=== PATIENT | female | born 1945 | race Caucasian/White ===

== ENCOUNTER 2016-04-05 19:36 | Emergency (ER) | payer MEDICARE, MEDICAID ==
--- NOTE | 2016-04-05 19:58 | UC ---
General HPI - HPI Summary HPI Summary: patient is a [facility] of a [facility], she slipped off the toilet landed on right knee. per home policy is here for check. she denies any new onset pain. - History of Current Complaint Stated Complaint: FALL/NO VISABLE INJURIES Time Seen by Provider: 04/05/16 19:42 Hx Obtained From: Patient Onset/Duration: Sudden Onset, Resolved Timing: Constant Onset Severity: Mild Current Severity: Mild - Allergy/Home Medications Allergies/Adverse Reactions: Allergies Allergy/AdvReac Type Severity Reaction Status Date / Time Penicillins Allergy Unknown Unknown Verified 03/16/15 19:25 Reaction Details Acetaminophen [From Tylenol] Allergy See Comment Verified 06/27/15 14:20 Timolol Allergy Rash Verified 03/16/15 19:25 PMH/Surg Hx/FS Hx/Imm Hx Previously Healthy: Yes Cardiovascular History Of: Reports: Hypertension Neurological History Of: Reports: Seizures Psychological History Of: Denies: Anxiety, Depression, Bipolar Disorder, Schizophrenia, Post Traumatic Stress Disorder Cancer History Of: Denies: Lung Cancer, Colorectal Cancer, Breast Cancer, Prostate Cancer, Cervical Cancer - Surgical History Surgical History: Yes Surgery Procedure, Year, and Place: hysterectomy and L oophorectomy - Family History Known Family History: Positive: None Negative: Cardiac Disease, Hypertension - Social History Alcohol Use: None Substance Use Type: None Smoking Status (MU): Never Smoked Tobacco - Immunization History Most Recent Influenza Vaccination: 12/2014 Most Recent Tetanus Shot: 09/02/10 Most Recent Pneumonia Vaccination: 12/29/11 Review of Systems Constitutional: Negative Skin: Negative Eyes: Negative ENT: Negative Respiratory: Negative Cardiovascular: Negative Gastrointestinal: Negative Genitourinary: Negative Motor: Negative Neurovascular: Negative Musculoskeletal: Arthralgia Neurological: Negative Psychological: Negative All Other Systems Reviewed And Are Negative: Yes Physical Exam Triage Information Reviewed: Yes Appearance: Well-Appearing, Well-Nourished, Pain Distress Vital Signs Reviewed: Yes Eye Exam: Normal Eyes: Positive: Conjunctiva Clear ENT Exam: Normal ENT: Positive: Normal ENT inspection, Pharynx normal, TMs normal Dental Exam: Normal Neck exam: Normal Neck: Positive: Supple, Nontender, No Lymphadenopathy Respiratory Exam: Normal Respiratory: Positive: Chest non-tender, Lungs clear, Normal breath sounds Cardiovascular Exam: Normal Cardiovascular: Positive: RRR, No Murmur, Pulses Normal Abdominal Exam: Normal Abdomen Description: Positive: Nontender, No Organomegaly, Soft Bowel Sounds: Positive: Present Musculoskeletal Exam: Normal Musculoskeletal: Positive: Strength Intact, ROM Intact, No Edema Neurological Exam: Normal Neurological: Positive: Alert, Muscle Tone Normal Psychological Exam: Normal Skin Exam: Normal Course/Dx - Course Course Of Treatment: hx obtained, exam performed, arthritic changes noted in bilateral knees, ROm in hips and knees and ankles good in all ROM. no deformity or crepitus, no bruising. recommend follow up with any new onset pain. - Differential Dx - Multi-Symptom Provider Diagnoses: fall. OA in right knee Discharge - Discharge Plan Condition: Stable Disposition: HOME Patient Education Materials: Arthritis (ED) Referrals: Reina Blanc PA [Primary Care Provider] - Additional Instructions: At this time patient does not seem to have any new injury or lasting pain from her fall. Continue with her current pain regimen may use ice as tolerated for any pain or swelling. follow up with her PCP if any symptoms arise.
[2016-04-05 20:04] VITALS: BP 99/83
== END 2016-04-05 20:12 | disposition home or self-care (01) ==
LOC: UCCORT 19:36
DX: M17.11 Unilateral primary osteoarthritis, right knee (principal); Z04.8 Encounter for examination and observation for other specified reasons; Z88.6 Allergy status to analgesic agent; Z88.0 Allergy status to penicillin; Z88.8 Allergy status to other drugs, medicaments and biological substances
CPT/HCPCS: 99211; G0463

== ENCOUNTER 2016-07-11 09:44 | Emergency (ER) | payer MEDICARE, MEDICAID ==
[2016-07-11 10:00] VITALS: BP 96/56
--- NOTE | 2016-07-11 11:02 | UC ---
Skin Complaint HPI - HPI Summary HPI Summary: Patient states she has a "sore" on the left anterior area of scalp. Unable to recall how long it has been there, denies any injury. A nickel sized red open abrasion visible. [ End ] - History of Current Complaint Chief Complaint: UCSkin Time Seen by Provider: 07/11/16 10:54 Stated Complaint: SKIN CONCERN Hx Obtained From: Patient Hx Last Menstrual Period: n/a ?: No Onset/Duration: Gradual Onset Skin Exposure Onset/Duration: Weeks Ago - ? Onset Severity: Mild Current Severity: Mild Location: Face Aggravating: Nothing Alleviating: Nothing Associated Signs & Symptoms: Positive: Negative - Allergy/Home Medications Allergies/Adverse Reactions: Allergies Allergy/AdvReac Type Severity Reaction Status Date / Time Penicillins Allergy Unknown Unknown Verified 07/11/16 10:00 Reaction Details Acetaminophen [From Tylenol] Allergy See Comment Verified 07/11/16 10:00 Timolol Allergy Rash Verified 07/11/16 10:00 Home Medications: Home Medications Bimatoprost 0.01% OPHTH (NF) [Lumigan 0.01% OPHTH (NF)] 1 drop BOTH EYES QPM [History Confirmed 07/11/16] Linaclotide (NF) [Linzess (NF)] 290 mcg PO EVERY OTHER DAY 07/11/16 [History Confirmed 07/11/16] Phenytoin CAP(*) [Dilantin CAP(*)] 100 mg PO TID 07/11/16 [History Confirmed ] Probiotic Product [Acidophilus] 1 cap PO DAILY 07/11/16 [History Confirmed 07/11] Topiramate [Topamax 100 mg tab] 150 mg PO BID 07/11/16 [History Confirmed ] Review of Systems Constitutional: Negative Skin: Negative, Other - lesion Eyes: Negative ENT: Negative Respiratory: Negative Cardiovascular: Negative Gastrointestinal: Negative Genitourinary: Negative Motor: Negative Neurovascular: Negative Musculoskeletal: Negative Neurological: Negative Psychological: Negative All Other Systems Reviewed And Are Negative: Yes PMH/Surg Hx/FS Hx/Imm Hx Previously Healthy: Yes Cardiovascular History Of: Reports: Hypertension Neurological History Of: Reports: Seizures Psychological History Of: Denies: Anxiety, Depression, Bipolar Disorder, Schizophrenia, Post Traumatic Stress Disorder Cancer History Of: Denies: Lung Cancer, Colorectal Cancer, Breast Cancer, Prostate Cancer, Cervical Cancer - Surgical History Surgical History: Yes Surgery Procedure, Year, and Place: hysterectomy and L oophorectomy - Family History Known Family History: Positive: None Negative: Cardiac Disease, Hypertension - Social History Occupation: Employed Full-time Lives: With Family Alcohol Use: None Substance Use Type: None Smoking Status (MU): Never Smoked Tobacco - Immunization History Most Recent Influenza Vaccination: 12/2014 Most Recent Tetanus Shot: 09/02/10 Most Recent Pneumonia Vaccination: 12/29/11 Physical Exam Triage Information Reviewed: Yes Appearance: Well-Appearing, No Pain Distress, Well-Nourished Vital Signs: Initial Vital Signs Temp 97.8 F 07/11/16 09:47 Pulse 68 07/11/16 09:47 Resp 14 07/11/16 09:47 BP 96/56 07/11/16 09:47 Pulse Ox 98 07/11/16 09:47 Eye Exam: Normal ENT Exam: Normal Dental Exam: Normal Neck exam: Normal Neck: Positive: 1 Respiratory Exam: Normal Cardiovascular Exam: Normal Musculoskeletal Exam: Normal Neurological Exam: Normal Psychological Exam: Normal Skin Exam: Normal Skin: Positive: Other - pearly papular lesion on the scalp 1x.5 cm round no erythema no discharge Course/Dx - Differential Diagnoses - Skin Complaint Differential Diagnoses: Contact Dermatitis, Impetigo, Local Allergic Reaction - Diagnoses Provider Diagnoses: Skin cancer on scalp Discharge - Discharge Plan Condition: Good Disposition: HOME Patient Education Materials: Skin Cancer Prevention (ED) Referrals: Reina Blanc PA [Primary Care Provider] - 3 Days Feliberto SALAS,Sal Medrano [Medical Doctor] - (flight crew scheduler referral ) Namita Liriano [Medical Doctor] - (dermatology referral if needed ) Additional Instructions: As we discussed I am concerned for a skin cancer on the scalp and advise dermatology referral. I advise to cover the lesion up with bacitracin twice a day for 7 days to prevent / reduce the chance of infection .
== END 2016-07-11 11:16 | disposition home or self-care (01) ==
LOC: UCCORT 09:44
DX: C44.40 Unspecified malignant neoplasm of skin of scalp and neck (principal); I10 Essential (primary) hypertension; Z90.710 Acquired absence of both cervix and uterus; Z88.0 Allergy status to penicillin
CPT/HCPCS: 99212; G0463

== ENCOUNTER 2017-03-13 12:30 | Emergency (ER) | payer MEDICARE, MEDICAID ==
[2017-03-13 15:29] VITALS: BP 86/52
--- NOTE | 2017-03-13 15:32 | UC ---
Respiratory Complaint HPI - History of Current Complaint Stated Complaint: COUGH ELEVATED TEMP Time Seen by Provider: 03/13/17 15:15 Hx Last Menstrual Period: n/a - Allergies/Home Medications Allergies/Adverse Reactions: Allergies Allergy/AdvReac Type Severity Reaction Status Date / Time Penicillins Allergy Unknown Unknown Verified 07/11/16 10:00 Reaction Details Acetaminophen [From Tylenol] Allergy See Comment Verified 07/11/16 10:00 Timolol Allergy Rash Verified 07/11/16 10:00 PMH/Surg Hx/FS Hx/Imm Hx - Surgical History Surgical History: Yes Surgery Procedure, Year, and Place: hysterectomy and L oophorectomy - Family History Known Family History: Positive: None Negative: Cardiac Disease, Hypertension - Social History Alcohol Use: None Substance Use Type: None Smoking Status (MU): Never Smoked Tobacco - Immunization History Most Recent Influenza Vaccination: 12/2014 Most Recent Tetanus Shot: 09/02/10 Most Recent Pneumonia Vaccination: 12/29/11 Discharge - Discharge Plan Referrals: Reina Blanc PA [Primary Care Provider] -
--- NOTE | 2017-03-13 16:28 | RAD ---
INDICATION: Cough and fever x3 days COMPARISON: None TECHNIQUE: PA and lateral views of the chest were obtained. FINDINGS: The heart and mediastinum are normal in size and contour. There is faint infiltrative the lateral left lung base. Otherwise the lungs are grossly clear. There is no evidence of large pleural effusion. Visualized bones are normal for the patient's age. There is no radiographic evidence of free air beneath the diaphragm IMPRESSION: QUESTIONABLE INFILTRATE AT THE LEFT LUNG BASE COULD BE PNEUMONIA.
[2017-03-13] MEDS ORDERED: Levofloxacin TAB* 500 MG PO ONE (16:52)
== END 2017-03-13 17:28 | disposition home or self-care (01) ==
LOC: UCCORT 12:30
DX: R05 Cough (principal); R50.9 Fever, unspecified; Z88.0 Allergy status to penicillin; Z88.8 Allergy status to other drugs, medicaments and biological substances
CPT/HCPCS: 71020; 81003; 87077; 87086; 87186; 87502; 99212; G0463

== ENCOUNTER 2018-03-10 08:49 | Emergency (ER) | payer MEDICARE, MEDICAID ==
[2018-03-10 09:19] VITALS: BP 94/50
--- NOTE | 2018-03-10 10:51 | UC ---
Abdominal Pain Female HPI - HPI Summary HPI Summary: Pt is accompanied by a medical recruiter. Here for evaluation of nausea/vomiting/ diarrhea - History of Current Complaint Chief Complaint: UCGI Stated Complaint: VOMITING,HEADACHE Time Seen by Provider: 03/10/18 10:36 Hx Obtained From: Patient, Family/Aviation Engineer Hx Last Menstrual Period: n/a ?: No Onset/Duration: Worse Since - onset Severity Initially: Mild Severity Currently: Mild Pain Intensity: 6 Location: Diffuse - face and uppper trunk Radiates: No Character: Dull, Other - itchy Aggravating Factor(s): Food Alleviating Factor(s): Other: - rest Associated Signs and Symptoms: Positive: Nausea, Vomiting, Diarrhea - Risk Factors Ectopic Risk Factor: Negative Ovarian Torsion Risk Factor: Negative Allergies/Adverse Reactions: Allergies Allergy/AdvReac Type Severity Reaction Status Date / Time acetaminophen Allergy "Can't Verified 03/10/18 09:20 have it because of her liver" levetiracetam [From [facility]] Allergy Unknown Verified 03/10/18 09:19 Reaction Details Penicillins Allergy Unknown Verified 03/10/18 09:19 Reaction Details timolol Allergy Rash Verified 03/10/18 09:19 Home Medications: Home Medications Brimonidine/Timolol OPTH(NF) [Combigan OPHTH (NF)] 1 drop BOTH EYES BID [History Confirmed 03/10/18] Brinzolamide 1% OPHTH MICHAEL(NF) [Azopt 1% OPHTH MICHAEL(NF)] 1 drop BOTH EYES TID [History Confirmed 03/10/18] PMH/Surg Hx/FS Hx/Imm Hx Previously Healthy: Yes - lives in [facility] - Surgical History Surgical History: Yes Surgery Procedure, Year, and Place: Hysterectomy, Left Oopherectomy - Family History Known Family History: Positive: None Negative: Cardiac Disease, Hypertension - Social History Occupation: Disabled Lives: Shelter Alcohol Use: None Substance Use Type: None Smoking Status (MU): Never Smoked Tobacco Have You Smoked in the Last Year: No - Immunization History Most Recent Influenza Vaccination: 12/2014 Most Recent Tetanus Shot: 09/02/10 Most Recent Pneumonia Vaccination: 12/29/11 Review of Systems All Other Systems Reviewed And Are Negative: Yes Constitutional: Positive: Fatigue Skin: Positive: Negative Eyes: Positive: Negative ENT: Positive: Negative Respiratory: Positive: Negative Cardiovascular: Positive: Negative Gastrointestinal: Positive: Abdominal Pain, Vomiting, Diarrhea, Nausea Genitourinary: Positive: Negative Motor: Positive: Negative Neurovascular: Positive: Negative Musculoskeletal: Positive: Negative Neurological: Positive: Negative Psychological: Positive: Negative Is Patient Immunocompromised?: No Physical Exam - Summary Physical Exam Summary: Pt sitting in wheelchair. states that she normally uses a walker but feels tiered now after vomiting X 1 and diarrhea X 1. Triage Information Reviewed: Yes Appearance: Well-Appearing, Other: - c/o fatigue Vital Signs: Initial Vital Signs Temp 97.4 F 03/10/18 09:12 Pulse 56 03/10/18 09:12 Resp 14 03/10/18 09:12 BP 94/50 03/10/18 09:12 Pulse Ox 100 03/10/18 09:12 Eye Exam: Normal ENT Exam: Normal ENT: Positive: Hearing grossly normal Dental Exam: Normal Neck exam: Normal Respiratory Exam: Normal Cardiovascular Exam: Normal Abdominal Exam: Other - c/o generalized tenderness Abdomen Description: Positive: Other: - denies urinary symptoms Bowel Sounds: Positive: Present Musculoskeletal Exam: Normal - at baseline Neurological Exam: Normal Psychological Exam: Normal Skin Exam: Normal Abd Pain Female Course/Dx - Course Course Of Treatment: I discussed worsening symptoms with the pt and caregiver. I discussed use of zofran and to seek care at emergency room if symptoms worsen - Differential Dx/Diagnosis Differential Diagnosis: Urinary Tract Infection Provider Diagnosis: Vomiting, Loose stools, Fatigue Discharge - Sign-Out/Discharge Documenting (check all that apply): Patient Departure All imaging exams completed and their final reports reviewed: No Studies - Discharge Plan Condition: Stable Disposition: HOME Prescriptions: Ondansetron HCl [Zofran] 8 mg PO Q8H PRN #15 tablet PRN Reason: Nausea Patient Education Materials: Acute Nausea and Vomiting (ED), Acute Diarrhea (ED ) Referrals: Reina Blanc PA [Primary Care Provider] - If Needed Additional Instructions: PLEASE NOTE, IF YOUR SYMPTOMS DO NOT IMPROVE, GO DIRECTLY TO THE EMERGENCY ROOM FOR FURTHER EVALUATION AND TREATMENT. - Billing Disposition and Condition Condition: STABLE Disposition: Home - Attestation Statements Provider Attestation: Per institutional requirements, I have reviewed the chart, however, I was not consulted specifically or made aware of this patient by the midlevel provider. I did not personally evaluate, interact with , or disposition this patient.
== END 2018-03-10 11:02 | disposition home or self-care (01) ==
LOC: UCCORT 08:49
DX: R11.10 Vomiting, unspecified (principal); R19.7 Diarrhea, unspecified; R53.83 Other fatigue; Z88.0 Allergy status to penicillin; Z88.6 Allergy status to analgesic agent; Z88.8 Allergy status to other drugs, medicaments and biological substances
CPT/HCPCS: 99212; G0463

== ENCOUNTER 2018-04-30 10:49 | Emergency (ER) | payer MEDICARE, MEDICAID ==
[2018-04-30 12:15] VITALS: BP 118/64
--- NOTE | 2018-04-30 12:33 | UC ---
UC General HPI - HPI Summary HPI Summary: sore throat, cough, body aches since yesterday. hoarse yesterday. no sob, f/c's or asthma. - History of Current Complaint Chief Complaint: UCGeneralIllness Stated Complaint: ST/CONGESTION/BODY ACHES Time Seen by Provider: 04/30/18 12:26 Hx Obtained From: Patient, Family/Planer Offbearer Hx Last Menstrual Period: n/a Onset/Duration: Gradual Onset Timing: Constant Pain Intensity: 3 Associated Signs & Symptoms: Negative: Chest Pain, Fever, SOB - Allergy/Home Medications Allergies/Adverse Reactions: Allergies Allergy/AdvReac Type Severity Reaction Status Date / Time acetaminophen Allergy "Can't Verified 03/10/18 09:20 have it because of her liver" [facility]iracetam [From [facility]] Allergy Unknown Verified 03/10/18 09:19 Reaction Details Penicillins Allergy Unknown Verified 03/10/18 09:19 Reaction Details timolol Allergy Rash Verified 03/10/18 09:19 PMH/Surg Hx/FS Hx/Imm Hx - Additional Past Medical History Additional PMH: glaucoma Cardiovascular History: Hypertension GI/ History: Gastroesophageal Reflux - Surgical History Surgical History: Yes Surgery Procedure, Year, and Place: Hysterectomy, Left Oopherectomy - Family History Known Family History: Positive: None Negative: Cardiac Disease, Hypertension - Social History Lives: [facility] Care Alcohol Use: None Substance Use Type: None Smoking Status (MU): Never Smoked Tobacco Have You Smoked in the Last Year: No - Immunization History Most Recent Influenza Vaccination: 12/2014 Most Recent Tetanus Shot: 09/02/10 Most Recent Pneumonia Vaccination: 12/29/11 Vaccination Up to Date: Yes Review of Systems All Other Systems Reviewed And Are Negative: Yes Constitutional: Positive: Negative Skin: Positive: Negative Eyes: Positive: Negative ENT: Positive: Sore Throat Respiratory: Positive: Cough Cardiovascular: Positive: Negative Gastrointestinal: Positive: Negative Genitourinary: Positive: Negative Motor: Positive: Negative Neurovascular: Positive: Negative Musculoskeletal: Positive: Myalgia Neurological: Positive: Negative Psychological: Positive: Negative Physical Exam Triage Information Reviewed: Yes Appearance: Well-Appearing Vital Signs: Initial Vital Signs Temp 97.7 F 04/30/18 12:09 Pulse 67 04/30/18 12:09 Resp 17 04/30/18 12:09 BP 118/64 04/30/18 12:09 Pulse Ox 99 04/30/18 12:09 Vital Signs Reviewed: Yes Eyes: Positive: Conjunctiva Clear ENT: Positive: Pharyngeal erythema, TMs normal, Uvula midline. Negative: Nasal drainage, Trismus, Muffled voice, Hoarse voice Neck: Positive: Supple, Nontender, No Lymphadenopathy Respiratory: Positive: Lungs clear, Normal breath sounds, No respiratory distress Cardiovascular: Positive: RRR, No Murmur Abdomen Description: Positive: Nontender, No Organomegaly, Soft Bowel Sounds: Positive: Present Musculoskeletal: Positive: ROM Intact Neurological: Positive: Alert Psychological: Positive: Normal Response To Family, Age Appropriate Behavior Skin Exam: Normal Diagnostics - Laboratory Diagnostic Studies Completed/Ordered: RAPID STREP AND FLU ARE NEGATIVE Course/Dx - Differential Dx - Multi-Symptom Differential Diagnoses: Other - NON TOXIC, RAPID STREP/FLU=NEG. NO INDICATION FOR ANTIBIOPTICS - Diagnoses Provider Diagnosis: Viral syndrome Discharge - Sign-Out/Discharge Documenting (check all that apply): Patient Departure All imaging exams completed and their final reports reviewed: No Studies - Discharge Plan Condition: Stable Disposition: HOME Patient Education Materials: Viral Syndrome (ED) Referrals: Reina Blanc PA [Primary Care Provider] - 5 Days Additional Instructions: RESUME PRIOR CARE. FOLLOW UP PRIMARY IN 5 DAYS IF NOT BETTER OR SOONER IF WORSE. - Billing Disposition and Condition Condition: STABLE Disposition: Home
[2018-04-30 12:42] LABS: Influenza A Molecular NEGATIVE (Negative); Influenza B Molecular NEGATIVE (Negative)
== END 2018-04-30 13:11 | disposition home or self-care (01) ==
LOC: UCCORT 10:49
DX: B34.9 Viral infection, unspecified (principal); J02.9 Acute pharyngitis, unspecified; R05 Cough; I10 Essential (primary) hypertension; H40.9 Unspecified glaucoma; M79.10 Myalgia, unspecified site; Z88.0 Allergy status to penicillin; Z88.8 Allergy status to other drugs, medicaments and biological substances
CPT/HCPCS: 87651; 99211; G0463

== ENCOUNTER 2018-10-25 19:57 | Emergency (ER) | payer MEDICARE, MEDICAID ==
[2018-10-25 20:30] VITALS: BP 142/74
--- NOTE | 2018-10-25 20:56 | ED ---
Throat Pain/Nasal Congestion - HPI Summary HPI Summary: 73 yr old female with white build up on tongue. The patient lives in a halfway and they thought she has thrush. The patient has no complaints and is in no distress. She is eating and drinking normally. Onset of this just today it was noticed. - History of Current Complaint Chief Complaint: UCSkin Time Seen by Provider: 10/25/18 20:43 - Allergies/Home Medications Allergies/Adverse Reactions: Allergies Allergy/AdvReac Type Severity Reaction Status Date / Time acetaminophen Allergy "Can't Verified 10/25/18 20:31 have it because of her liver" levetiracetam [From [facility]] Allergy Unknown Verified 10/25/18 20:31 Reaction Details Penicillins Allergy Unknown Verified 10/25/18 20:31 Reaction Details timolol Allergy Rash Verified 10/25/18 20:31 Home Medications: Home Medications Calcitonin NASAL(NF) [Fortical(NR)] 1 mg .SEE ORDER DAILY 10/25/18 [History Confirmed 10/25/18] Calcium Carbonate/Vitamin D3 [Calcium 500+D 500-200 mg-Unit] 1 tab PO DAILY [History Confirmed 10/25/18] Docusate Sodium [Colace] 300 mg PO DAILY 10/25/18 [History Confirmed 10/25/18] Gabapentin 600 mg PO TID 10/25/18 [History Confirmed 10/25/18] Netarsudil Mesylate [Rhopressa] 2.5 ml OP DAILY 10/25/18 [History Confirmed ] PMH/Surg Hx/FS Hx/Imm Hx Cardiovascular History: Reports: Hx Hypertension Respiratory History: Denies: Hx Lung Cancer Neurological History: Reports: Hx Seizures Psychiatric History: Denies: Hx Anxiety, Hx Depression, Hx Schizophrenia, Hx Bipolar Disorder - Surgical History Surgery Procedure, Year, and Place: Hysterectomy, Left Oopherectomy Infectious Disease History: No Infectious Disease History: Denies: Hx Clostridium Difficile, Hx Hepatitis, Hx Human Immunodeficiency Virus (HIV), Hx of Known/Suspected MRSA, Hx Shingles, Hx Tuberculosis, Hx Known/ Suspected VRE, Hx Known/Suspected VRSA, History Other Infectious Disease, Traveled Outside the [place] in Last 30 Days - Family History Known Family History: Positive: None Negative: Cardiac Disease, Hypertension - Social History Occupation: Employed Full-time Alcohol Use: None Substance Use Type: Reports: None Smoking Status (MU): Never Smoked Tobacco Have You Smoked in the Last Year: No Review of Systems Constitutional: Negative Positive: Other - build up of white appearing thrush on the tongue. All Other Systems Reviewed And Are Negative: Yes Physical Exam Triage Information Reviewed: Yes Vital Signs On Initial Exam: Initial Vitals Temp Pulse Resp BP Pulse Ox 97.9 F 75 16 142/74 99 10/25/18 20:25 10/25/18 20:25 10/25/18 20:25 10/25/18 20:25 10/25/18 20:25 Vital Signs Reviewed: Yes Appearance: Positive: Well-Appearing, No Pain Distress Skin: Positive: Warm, Skin Color Reflects Adequate Perfusion Head/Face: Positive: Normal Head/Face Inspection Eyes: Positive: EOMI, KEERTHI ENT: Positive: Normal ENT inspection Neck: Positive: Nontender Respiratory/Lung Sounds: Positive: Clear to Auscultation, Breath Sounds Present Cardiovascular: Positive: RRR. Negative: Murmur Abdomen Description: Positive: Nontender. Negative: Distended Musculoskeletal: Positive: Strength/ROM Intact Neurological: Positive: Sensory/Motor Intact, Alert, Oriented to Person Place, Time, CN Intact II-III, Normal Gait, Speech Normal Psychiatric: Positive: Normal - Radha Coma Scale Best Eye Response: 4 - Spontaneous Best Motor Response: 6 - Obeys Commands Best Verbal Response: 5 - Oriented Coma Scale Total: 15 Diagnostics - Vital Signs Vital Signs Temp Pulse Resp BP Pulse Ox 10/25/18 20:25 97.9 F 75 16 142/74 99 - Laboratory Lab Statement: Any lab studies that have been ordered have been reviewed, and results considered in the medical decision making process. EENT Course/Dx - Course Course Of Treatment: 73 yr old with thrush. Rx with nystatin. - Diagnoses Provider Diagnoses: Oral thrush, Hypertension Discharge - Sign-Out/Discharge Documenting (check all that apply): Patient Departure All imaging exams completed and their final reports reviewed: No Studies - Discharge Plan Condition: Good Disposition: HOME Prescriptions: Nystatin SUSPENSION* 500,000 units PO TID #150 ml Patient Education Materials: Oral Candidiasis (ED), Hypertension (ED) Referrals: Reina Blanc PA [Primary Care Provider] - 1 Day - Billing Disposition and Condition Condition: GOOD Disposition: Home
--- OUTSIDE RECORDS SUMMARY | 2018-10-25 23:33 | XMS REPORT | Continuity of Care Document ---
:1945 External Reference #:[id number] Author Name Vijay Pruittie Care Team Providers Name Role Phone Reina Blanc RPA Primary Care Physician Unavailable Payers Date Identification Numbers Payment Provider Subscriber Policy Number: [id number] Medicare Nereida Honeycutt PayID: [id number] [address] [place] [address] Policy Number: [id number] Medicaid Nereida Honeycutt Group Name: 1 1 [address] PayID: [id number] [place] [address] Problems Active Problems Provider Date Localization-related epilepsy Vargas Richardson M.D. Onset: 01/25/2014 Degenerative joint disease involving Reina Blanc, PA Onset: 06/07/2018 multiple joints Note: ankles, knees, hip, dorsal/lumbar spine Osteoporosis Reina Blanc, PA Onset: 06/07/2018 Note: compression fxs [id number] Chronic low back pain Reina Blanc, PA Onset: 06/07/2018 Essential hypertension Reina Blanc, PA Onset: 06/07/2018 Glaucoma Reina Blanc, PA Onset: 06/07/2018 Obstructive sleep apnea syndrome Reina Blanc, PA Onset: 06/07/2018 Note: noncompliant with a-pap Allergic rhinitis Reina Blanc, PA Onset: 06/07/2018 Non-alcoholic fatty liver Reina Blanc, PA Onset: 06/07/2018 Constipation Reina Blanc, PA Onset: 06/07/2018 Cholelithiasis without obstruction Reina Blanc, PA Onset: 06/07/2018 Asymptomatic carotid artery stenosis Reina Blanc, PA Onset: 06/07/2018 Note: right Intellectual functioning disability Reina Blanc PA Onset: 06/07/2018 Note: nonspecific Sensorineural hearing loss, bilateral Reina Blanc PA Onset: 06/07/2018 Gastroesophageal reflux disease Reina Blanc PA Onset: 06/07/2018 Note: with tortuous esophagus Dilation of esophagus eRina Blanc PA Onset: 06/10/2018 Note: 09/2016, 10/2017 Retention of urine Reina Blanc PA Onset: 06/07/2018 Depressive disorder Reina Blanc PA Onset: 06/07/2018 Family History Date Family Member(s) Observation Comments Father Epilepsy Father Colon Cancer Age 50yrs Mother Diabetes Mother Inflammatory Arthritis Social History Type Date Description Comments Sex Unknown Lives With Assisted Living[facility]Housing [facility] Diet Patient is on a cholesterol diet Diet Patient is on a low sodium diet Occupation Disabled works 1/2 day at [employer] ETOH Use Denies alcohol use Tobacco Use Start: Unknown Patient has never smoked Recreational Drug Use Denies Drug Use Smoking Status Reviewed: 10/20/18 Patient has never smoked Allergies, Adverse Reactions, Alerts Active Allergies Reaction Severity Comments Date Penicillin 02/18/2011 Timolol Eye Drops 02/18/2011 Atenolol 11/08/2014 Keppra increased LFT levels increase LFT levels 10/07/2017 Medications Active Medications SIG Qnty Indications Ordering Date Provider Oyster Shell take 1 tablet by 180tabs Sal 09/22/2018 Calcium/D mouth 2 times MD Joseph daily [id number] Tablets Tab-A-Bessie take 1 tablet by 90tabs Sal 09/01/2018 Tablets mouth daily MD Joseph Milk Of Magnesia 30 milliliters by 480ml Sal 08/11/2018 mouth every 3 days MD Joseph 400mg/5ML Suspension if no bm; may give every day if no results Phenytoin Sodium take one cap by 90caps Vargas Vale 07/18/2018 Extended mouth in am and 2 Edna Richardson 100mg Capsules caps in pm Linzess 1 cap by mouth on 30caps Sal 07/07/2018 145mcg Capsules Lucina Brunson, Stefan, MD Joseph Sun Venlafaxine HCL ER 1 cap by mouth 30caps Bowie 07/07/2018 every day MD Joseph 150mg Caps ER 24HR Topiramate 3 po bid 180tabs Vargas Vale 11/26/2015 100mg Edna Richardson Tablets Gabapentin 2 tabs by mouth 180caps Vargas S. 300mg three times a day Edna Richardson Capsules Fleet Enema may use enema 2units Sal every 5 days if no MD Joseph 7-19GM/118ML Enema bm results from mom Azopt three times a day Unknown 1% Suspension Calcitonin (Mclean) 1 spray to 3.700ml Sal alternating MD Joseph 200Unit/Act Solution nostrils once daily Combigan 1 drop in both Unknown 0.2-0.5% eyes bid Solution Tylenol Extra 1 tab every 4 60tabs Bowie Strength hours as needed MD Joseph 500mg Tablets for fever > 100.5 and/or complaint of acute pain Mylanta 10 milliliters as Unknown needed [id number]/5ML Suspension Tussin DM 10 ml po every 4 118ml Sal 20-200mg/10ML hours as needed MD Joseph Liquid for minor cough Bacitracin (External) apply topically to 28.400gm Sal minor cuts/wounds MD Joseph 500Unit/GM Ointment twice a day as needed Hydrocortisone apply sparingly to 28.350gm Sal 1% Cream minor skin MD Joseph irritation 3 times a day as needed Rhopressa instill one drop Unknown 0.02% both eyes every Solution day Omeprazole 1 by mouth every 30caps Bowie 20mg day MD Joseph Capsules DR Nystatin apply thin layer 30gm Sal [id number]/GM to rash in MD Joseph Ointment abdominal folds four times a day as needed Tizanidine HCL 1 by mouth daily 90tabs Bowie 4mg and 2 tabs at 2pm MD Joseph Tablets Miralax 17 gm every day 510gm Bowie 3350NF Powder mixed w/ 8 oz MD Joseph water/juice daily. Naproxen 1 tab by mouth 90tabs Bowie 500mg Tablets daily MD Joseph Abreva apply thin film to 2gm Bowie 10% Cream cold sore 5 times MD Joseph daily as needed Acidophilus 1 by mouth every 90caps Bowie Capsules day MD Joseph Vitamin D High 1 cap (or tab) by 90caps Bowie Potency mouth every day MD Joseph 1000Unit Capsules Lumigan 1 gtt both eyes at Unknown 0.03% Solution hs Claritin 1 tablet po daily 90caps Bowie 10mg Capsules MD Joseph Colace 3 caps by mouth 180caps Bowie 100mg Capsules every day with MD Joseph fiber cereal (hold for loose stools) History Medications Ortder discontinue Zoyosef Huang 09/23/2018 - MD Joseph 10/19/2018 Nitrofurantoin 1 by mouth twice a 20caps Sal 07/07/2018 - Monohydrate/Macrocrys day MD Joseph 07/12/2018 tals 100mg Capsules Pilocarpine HCL 1 drop both eyes Fergers, 06/23/2018 - 2% four times a day MD Marisol 07/07/2018 Solution Order discontinue Sal 06/21/2018 - Linzess...the MD Joseph 07/07/2018 290mcg dose Azithromycin 2 tabs by mouth 6tabs J02.9 Bowie 06/15/2018 - 250mg today then 1 tab MD Joseph 06/22/2018 Tablets by mouth daily Linzess 1 tab by mouth 30caps K59.00 Bowie 06/07/2018 - 145mcg Capsules Lucina Brunson Sat, Castellanos, MD 07/07/2018 Sun Topiramate 1 by mouth in in 60tabs Vargas Richardson, 02/04/2016 - 50mg Tablets the morning and M.DKatherin 09/10/2016 one in every night in addition to 100mg tab Dilantin Infatabs 1 by mouth in 30unit Vargas Richardson, 01/06/2016 - 50mg addition to 100mg s M.D. 07/18/2018 Chewtabs dosage at night Topiramate 2 by mouth in in 150tab Vargas Richardson, 09/05/2015 - 25mg Tablets the morning 3 at s M.D. 11/26/2015 at bedtime Levetiracetam 2 by mouth every 150tab Vikki Luis MD 11/08/2014 - 500mg morning and 3 s 10/09/2015 Tablets every night at bedtime Levetiracetam 1 by mouth twice a 60tabs Vargas Richardson, 07/23/2014 - 1000mg day M.D. 11/08/2014 Tablets Levetiracetam 1 by mouth twice a 60tabs Vargas Richardson, 12/26/2013 - 750mg day M.D. 07/23/2014 Tablets Levetiracetam 2 po qam and 3 qhs 450tab Vargas Richardson, 03/02/2013 - 250mg s M.D. 12/26/2013 Tablets Dilantin Infatabs 1 at midday 90unit Vargas Richardson, 02/08/2013 - 50mg s M.D. 05/05/2013 Chewtabs Neurontin 1 by mouth three 270tab Vargas Richardson, 09/01/2012 - 600mg Tablets times a day with s M.D. 10/09/2015 400 mg dose Gabapentin 1 by mouth three 270cap Ora Davis, 09/01/2012 - 400mg times a day with s M.D. 10/10/2015 Capsules 600 mg dose Robitussin DM take 2 teaspoons Unknown - by mouth every 4 03/01/2017 100-10mg/5ML Syrup hours as needed for cough Aspir-Low 1 by mouth every Unknown - 81mg Tablets day 03/02/2017 Calcium 1 po bid Unknown - Carbonate-Vitamin D 10/28/2015 Tablets Multivitamins 1 by mouth every Unknown - Capsules day 09/01/2018 Loratadine 1 by mouth every Unknown - 10mg Tablets day 10/28/2015 Linzess by mouth 4 times K59.00 Unknown - 290mcg Capsules weekly (frank ryan, 06/07/2018 tues and thurs.) Ipzdvcpyam-Agmowxdz-N apply twice daily Unknown - olymyxin to affected area 03/03/2017 400-5-5000 prn Ointment Hydrocortisone Plus apply sparingly Unknown - 1% twice a day prn 09/08/2016 Cream Prilosec 1 by mouth every Unknown - 15mg Capsules day 10/28/2015 Prevacid 1 by mouth every Unknown - 15mg Capsules day 09/07/2016 Multivitamin Adult 1 by mouth every Unknown - day 01/06/2016 Tablets Amoxicillin 1 po bid x 10 days Unknown - 500mg 02/12/2016 Capsules Fortical one spray daily in Unknown - 200Unit/Act alternate nostrils 03/21/2018 Solution Voltaren apply 2 grams Unknown - 1% Gel twice daily as 03/28/2018 needed for pain Guaifenesin as directed Unknown - 100mg/5ML 03/02/2017 Syrup Norvasc 1 by mouth every Unknown - 2.5mg Tablets day 03/21/2018 Dilantin take 1 capsule by 90caps Vargas Richardson, - 100mg Capsules mouth in the M.D. 07/18/2018 morning and 2 capsules at night. *do not crush or chewcristiane* Zofran one every 8 hours 30tabs Sal - 8mg Tablets as needed for MD Joseph 09/23/2018 nausea Neurontin po bid 240tab Unknown - 800mg Tablets s 09/01/2012 Miacalcin 1 squirt 1units Unknown - 200Unit/ML intranasal 09/07/2016 Solution alternate nostrils Oysco 500+D 1 tab bid Unknown - 09/22/2018 [id number] Chewtabs Lasix 1 po qd 90tabs Unknown - 20mg Tablets 09/12/2014 Celebrex 1 po qd 30caps Unknown - 200mg Capsules 09/12/2014 Effexor XR 1 cap by mouth 30caps Sal - 150mg Caps every day MD Joseph 07/07/2018 ER 24HR Lipitor one tab po qhs 90tabs Unknown - 40mg Tablets 09/04/2015 Metoprolol Tartrate 1/2 by mouth twice 60tabs Unknown - a day 03/02/2017 50mg Tablets Acetaminophen 2 po q 4hrs prn 120uni Unknown - 325mg ts 05/30/2015 Suppository Mylanta 10-20 ml po prn 355ml Unknown - 02/22/2017 620-979-77lq/5ML Suspension Kaopectate 30ml q hr max 8 12Oz Unknown - 262mg/15ML doses per day 10/28/2015 Suspension Dorzolamide HCL ou tid Unknown - 2% 03/21/2018 Solution Alphagan P three times a day Unknown - 0.1% 04/11/2018 Solution Keppra 2 by mouth in the 60tabs Unknown - 250mg Tablets am 3 po at hs.. 11/16/2013 Neurontin 1 by mouth three 90caps Ora Davis, - 400mg times daily with M.D. 01/22/2015 Capsules 600mg dose Mobic once daily with Unknown - 15mg Tablets food 09/04/2015 Lansoprazole take one capsule Unknown - 15mg daily. 02/12/[address] Milk Of Magnesia 30 milliliters Unknown - 7.75% oral every day as 08/11/2018 Suspension needed for constipation. Vital Signs Date Vital Result Comment 10/20/2018 1:02pm Height 58.5 inches 4'10.50" Weight 160.00 lb Heart Rate 67 /min BP Systolic Sitting 128 mmHg BP Diastolic Sitting 68 mmHg Respiratory Rate 18 /min O2 % BldC Oximetry 97 % BMI (Body Mass Index) 32.9 kg/m2 07/07/2018 1:19pm Height 58.5 inches 4'10.50" Weight 159.00 lb Heart Rate 56 /min BP Systolic Sitting 118 mmHg BP Diastolic Sitting 66 mmHg O2 % BldC Oximetry 98 % BMI (Body Mass Index) 32.7 kg/m2 06/15/2018 11:49am Weight 169.00 lb Heart Rate 68 /min BP Systolic Sitting 108 mmHg BP Diastolic Sitting 64 mmHg Body Temperature 99.1 F O2 % BldC Oximetry 98 % 06/07/2018 9:47am Height 58.5 inches 4'10.50" Weight 165.00 lb Heart Rate 56 /min BP Systolic Sitting 118 mmHg BP Diastolic Sitting 70 mmHg O2 % BldC Oximetry 96 % BMI (Body Mass Index) 33.9 kg/m2 04/14/2018 3:13pm Height 61 inches 5'1" Weight 280.00 lb Heart Rate 80 /min BP Systolic Sitting 126 mmHg BP Diastolic Sitting 78 mmHg Respiratory Rate 16 /min BMI (Body Mass Index) 52.9 kg/m2 10/07/2017 2:57pm Height 61 inches 5'1" Weight 172.50 lb Heart Rate 72 /min BP Systolic Sitting 124 mmHg BP Diastolic Sitting 82 mmHg Respiratory Rate 17 /min Pain Level 0 pain is in the morning O2 % BldC Oximetry 98 % ra BMI (Body Mass Index) 32.6 kg/m2 03/04/2017 9:06am Height 61 inches 5'1" Weight 172.50 lb Heart Rate 72 /min BP Systolic 126 mmHg BP Diastolic 74 mmHg Respiratory Rate 16 /min Pain Level 0 O2 % BldC Oximetry 98 % Ra BMI (Body Mass Index) 32.6 kg/m2 09/10/2016 8:55am Height 61 inches 5'1" Weight 172.00 lb Heart Rate 70 /min BP Systolic 116 mmHg BP Diastolic 62 mmHg Respiratory Rate 16 /min Pain Level 0 O2 % BldC Oximetry 97 % Ra BMI (Body Mass Index) 32.5 kg/m2 04/02/2016 8:47am Heart Rate 84 /min BP Systolic Sitting 100 mmHg BP Diastolic Sitting 74 mmHg Respiratory Rate 16 /min Pain Level 0 12/05/2015 1:45pm Weight 180.12 lb Heart Rate 60 /min BP Systolic Sitting 108 mmHg BP Diastolic Sitting 64 mmHg O2 % BldC Oximetry 96 % 10/10/2015 12:14pm Weight 188.00 lb Heart Rate 62 /min BP Systolic Sitting 112 mmHg BP Diastolic Sitting 74 mmHg 09/05/2015 10:49am Heart Rate 60 /min BP Systolic Sitting 120 mmHg BP Diastolic Sitting 68 mmHg Respiratory Rate 14 /min 02/14/2015 11:54am Height 64 inches 5'4" Weight 196.00 lb Heart Rate 58 /min BP Systolic Sitting 135 mmHg BP Diastolic Sitting 73 mmHg BMI (Body Mass Index) 33.6 kg/m2 11/08/2014 9:22am Height 64 inches 5'4" Weight 204.00 lb Heart Rate 68 /min BP Systolic Sitting 116 mmHg BP Diastolic Sitting 76 mmHg BMI (Body Mass Index) 35.0 kg/m2 09/27/2014 3:03pm Height 64 inches 5'4" Heart Rate 60 /min BP Systolic Sitting 132 mmHg BP Diastolic Sitting 80 mmHg 09/13/2014 2:07pm Height 64 inches 5'4" Weight 189.00 lb Heart Rate 64 /min BP Systolic Sitting 134 mmHg BP Diastolic Sitting 84 mmHg BMI (Body Mass Index) 32.4 kg/m2 01/25/2014 2:49pm Height 64 inches 5'4" Heart Rate 79 /min BP Systolic Sitting 124 mmHg BP Diastolic Sitting 80 mmHg 11/16/2013 8:59am Weight 203.00 lb Heart Rate 73 /min BP Systolic Sitting 124 mmHg BP Diastolic Sitting 74 mmHg Respiratory Rate 12 /min 02/18/2011 11:08am Heart Rate 88 /min BP Systolic Sitting 128 mmHg BP Diastolic Sitting 88 mmHg Results Test Date Facility Test Result H/L Range Note Laboratory test 10/13/2018 [facility] Phenytoin 21.2 g/mL High 10-[address] (Dilantin) [place] [address] [phone] Topomax (Topiramate) 5.7 g/mL 2 CBC Auto 10/13/2018 [facility] White Blood 4.8 10^3/uL Normal 3.5-10.[address] [place] [address] [phone] Red Blood Count 4.04 10^6/uL Normal 3.70-4.87 Hemoglobin 13.5 g/dL Normal 12.0-16.0 Hematocrit 39 % Normal 35-47 Mean Corpuscular Volume 97 fL Normal 80-97 Mean Corpuscular Hemoglobin 33 pg High 27-31 Mean Corpuscular HGB Conc 34 g/dL Normal 31-36 Red Cell Distribution Width 13 % Normal 10-15 Platelet Count 198 10^3/uL Normal 150-450 Mean Platelet Volume 10.2 fL Normal 7.4-10.4 Abs Neutrophils 2.7 10^3/uL Normal 1.5-7.7 Abs Lymphocytes 1.5 10^3/uL Normal 1.0-4.8 Abs Monocytes 0.6 10^3/uL Normal 0-0.8 Abs Eosinophils 0.0 10^3/uL Normal 0-0.6 Abs Basophils 0.1 10^3/uL Normal 0-0.2 Abs Nucleated RBC 0.0 10^3/uL Granulocyte % 56.6 % Lymphocyte % 30.4 % Monocyte % 11.9 % Eosinophil % 0.0 % Basophil % 1.1 % Nucleated Red Blood Cells % 0.2 Comp Metabolic Panel 10/13/2018 [facility] Sodium 132 mmol/L Low 135-[address] [place] [address] [phone] Potassium 4.4 mmol/L Normal 3.5-5.0 Chloride 99 mmol/L Low 101-111 Co2 Carbon Dioxide 26 mmol/L Normal 22-32 Anion Gap 7 mmol/L Normal 2-11 Glucose 93 mg/dL Normal 70-100 Blood Urea Nitrogen 17 mg/dL Normal 6-24 Creatinine 0.73 mg/dL Normal 0.51-0.95 BUN/Creatinine Ratio 23.3 High 8-20 Calcium 8.9 mg/dL Normal 8.6-10.3 Total Protein 8.0 g/dL Normal 6.4-8.9 Albumin 4.0 g/dL Normal 3.2-5.2 Globulin 4.0 g/dL Normal 2-4 Albumin/Globulin Ratio 1.0 Normal 1-3 Total Bilirubin 0.30 mg/dL Normal 0.2-1.0 Alkaline Phosphatase 97 U/L Normal 34-104 Alt 18 U/L Normal 7-52 Ast 26 U/L Normal 13-39 Egfr Non- 78.6 >60 Egfr 95.1 >60 3 Laboratory test 08/16/2018 [facility] Phenytoin 22.0 High 10- [address] (Dilantin) g/[place] [address] [phone] Phenytoin Free 07/15/2018 [facility] Free Phenytoin 1.7 g/mL 1.0 - 2.0 & Total [address] [place] [address] [phone] Total Phenytoin 5.6 g/mL Abnormal 4 Laboratory test 07/15/2018 [facility] Topomax 5.0 g/mL [address] (Topiramate) [place] [address] [phone] CBC Auto Diff 07/15/2018 [facility] White Blood Count 5.1 Normal 3.5- [address] 10^3/uL 10.8 [place] [address] [phone] Red Blood Count 4.05 10^6/uL Normal 3.70-4.87 Hemoglobin 13.4 g/dL Normal 12.0-16.0 Hematocrit 40 % Normal 35-47 Mean Corpuscular Volume 98 fL High 80-97 Mean Corpuscular Hemoglobin 33 pg High 27-31 Mean Corpuscular HGB Conc 34 g/dL Normal 31-36 Red Cell Distribution Width 13 % Normal 10.5-15 Platelet Count 242 10^3/uL Normal 150-450 Mean Platelet Volume 9.5 fL Normal 7.4-10.4 Abs Neutrophils 3.5 10^3/uL Normal 1.5-7.7 Abs Lymphocytes 1.0 10^3/uL Normal 1.0-4.8 Abs Monocytes 0.6 10^3/uL Normal 0-0.8 Abs Eosinophils 0.0 10^3/uL Normal 0-0.6 Abs Basophils 0.1 10^3/uL Normal 0-0.2 Abs Nucleated RBC 0.0 10^3/uL Granulocyte % 67.4 % Lymphocyte % 19.6 % Monocyte % 11.7 % Eosinophil % 0.0 % Basophil % 1.3 % Nucleated Red Blood Cells % 0.1 Comp Metabolic 07/15/2018 [facility] Sodium 138 mmol/L Normal 135-[address] [place] [address] [phone] Potassium 4.2 mmol/L Normal 3.5-5.0 Chloride 106 mmol/L Normal 101-111 Co2 Carbon Dioxide 25 mmol/L Normal 22-32 Anion Gap 7 mmol/L Normal 2-11 Glucose 92 mg/dL Normal 70-100 Blood Urea Nitrogen 16 mg/dL Normal 6-24 Calcium 9.0 mg/dL Normal 8.6-10.3 Total Protein 7.6 g/dL Normal 6.4-8.9 Albumin 3.7 g/dL Normal 3.2-5.2 Globulin 3.9 g/dL Normal 2-4 Albumin/Globulin Ratio 0.9 Low 1-3 Total Bilirubin 0.30 mg/dL Normal 0.2-1.0 Alkaline Phosphatase 122 U/L High 34-104 Alt 21 U/L Normal 7-52 Ast 26 U/L Normal 13-39 Creatinine 0.77 mg/dL Normal 0.51-0.95 BUN/Creatinine Ratio 20.8 High 8-20 Egfr Non- 73.9 >60 Egfr 89.4 >60 6 Laboratory test 03/05/2017 [facility] Phenytoin 14.4 Normal 10 -20 finding [address] [facility] (Dilantin) g/[place] [address] [phone] Vitamin D Total 25(Oh) 41.2 ng/mL Normal 20-50 Vitamin D, 1,25 Dihydroxy 39 pg/mL 18-78 7 Laboratory test 02/22/2013 [facility] Phenytoin 20.2 g/mL High 10.0-20.0 8 finding [address] [place] [address] [phone] 1 Please obtain trough level before am dose of Phenytoin and Topiramate. 2 REFERENCE VALUE Reference values depend on clinical use: Anticonvulsant: 5.0-20.0 mcg/mL Psychiatric: 2.0-8.0 mcg/mL ADDITIONAL INFORMATION This test was developed and its performance characteristics determined by [facility] in a manner consistent with CLIA requirements. This test has not been cleared or approved by the U.S. Food and Drug Administration. Test Performed by: [facility] [address] [place] [address] 3 Because ethnic data is not always readily available, this report includes an eGFR for both -Americans and non- Americans. The National Kidney Disease Education Program (NKDEP) does not endorse the use of the MDRD equation for patients that are not between the ages of 18 and 70, are , have extremes of body size, muscle mass, or nutritional status, or are non- or non-. According to the National Kidney Foundation, irrespective of diagnosis, the stage of the disease is based on the level of kidney function: Stage Description GFR(mL/min/1.73 m(2)) 1 Kidney damage with normal or decreased GFR 90 2 Kidney damage with mild decrease in GFR 60-89 3 Moderate decrease in GFR 30-59 4 Severe decrease in GFR 15-29 5 Kidney failure <15 (or dialysis) 4 REFERENCE VALUE 10.0 - 20.0 Test Performed by: [facility] - [address] [address] 5 REFERENCE VALUE Reference values depend on clinical use: Anticonvulsant: 5.0-20.0 mcg/mL Psychiatric: 2.0-8.0 mcg/mL ADDITIONAL INFORMATION This test was developed and its performance characteristics determined by [facility] in a manner consistent with CLIA requirements. This test has not been cleared or approved by the U.S. Food and Drug Administration. Test Performed by: [facility] [address] [place] [address] 6 Because ethnic data is not always readily available, this report includes an eGFR for both -Americans and non- Americans. The National Kidney Disease Education Program (NKDEP) does not endorse the use of the MDRD equation for patients that are not between the ages of 18 and 70, are , have extremes of body size, muscle mass, or nutritional status, or are non- or non-. According to the National Kidney Foundation, irrespective of diagnosis, the stage of the disease is based on the level of kidney function: Stage Description GFR(mL/min/1.73 m(2)) 1 Kidney damage with normal or decreased GFR 90 2 Kidney damage with mild decrease in GFR 60-89 3 Moderate decrease in GFR 30-59 4 Severe decrease in GFR 15-29 5 Kidney failure <15 (or dialysis) 7 ADDITIONAL INFORMATION This test was developed and its performance characteristics determined by [facility] in a manner consistent with CLIA requirements. This test has not been cleared or approved by the U.S. Food and Drug Administration. Test Performed by: [facility] [address] [place] [address] 8 The detection limit for Phenytoin is 2.5 mcg/ml . Values less than 2.5 mcg/ml cannot be accurately measured. Procedures Date Code Description Status 09/05/2018 168140328 Diabetic Retinal Eye Exam Completed 07/04/2018 [id number] Mammogram Completed 06/30/2017 [id number] Mammogram Completed 06/18/2016 [id number] Mammogram Completed 06/18/2015 [id number] Mammogram Completed 10/25/2014 [id number] Colonoscopy Completed 11/29/2013 [id number] Bone Mineral Density Test Completed 03/18/2011 [id number] Rad Exam; Foot Comp Completed 03/18/2011 [id number] Rad Exam; Foot Comp Completed 07/07/2005 [id number] Bone Mineral Density Test Completed 06/13/2003 [id number] Flexible Sigmoidoscopy Completed Encounters Type Date Location Provider Dx Diagnosis Office Visit 07/07/2018 [facility] Reina Blanc, G40.219 Local- rel symptc 1:00p [place] epi w cmplx part seiz, ntrct, w/o stat epi R82.90 Unspecified abnormal findings in urine K59.00 Constipation, unspecified Office Visit 06/15/2018 11:30a [facility] Primary Reina J02.9 Acute pharyngitis, Care MILVIA Blanc unspecified J04.0 Acute laryngitis R05 Cough Office Visit 06/07/2018 9:30a [facility] Primary Reina K59.00 Constipation, Care [place] unspecified Z12.31 Encntr screen mammogram for malignant neoplasm of breast Office Visit 04/14/2018 [facility] Leonides Jain, G40.219 Local-rel 3:00p [facility] Of [employer] symptc epi w [place] cmplx part seiz, ntrct, w/o stat epi Office Visit 10/07/2017 [facility] [place] G40.219 Local-rel 3:00p Neurologic Serv Of Edna Richardson symptc epi w [place] cmplx part seiz, ntrct, w/o stat epi F79 Unspecified intellectual disabilities Z79.899 Other senior living (current) drug therapy [facility] G40.219 Local-rel 8:45a Neurologic [facility] Of Edna Richardson symptc epi w [place] Player cmplx part seiz, ntrct, w/o stat epi F79 Unspecified intellectual disabilities Z79.899 Other supervisor intermediates (current) drug therapy [facility] G40.219 Local-rel 8:45a [facility] [place] cmplx part seiz, ntrct, w/o stat epi F79 Unspecified intellectual disabilities [facility] G40.219 Local-rel 8:30a Neurologic Serv Of Edna Richardson symptc epi w [place] Player cmplx part seiz, ntrct, w/o stat epi F79 Unspecified intellectual disabilities R74.8 Abnormal levels of other serum enzymes Z79.899 Other supervisor intermediates (current) drug therapy [facility] G40.219 Local-rel 1:45p [facility] [place] cmplx part seiz, ntrct, w/o stat epi K72.90 Hepatic failure, unspecified without coma [facility]10[facility] G40.219 Local-rel 12:00p Neurologic Serv Of Edna Richardson symptc epi w [place] Player cmplx part seiz, ntrct, w/o stat epi K72.10 Chronic hepatic failure without coma Office Visit 09/05/2015 [place] Vale G40.219 Local-rel 10:45a Neurologic Serv Of Edna Richardson symptc epi w [place] Player cmplx part seiz, ntrct, w/o stat epi K72.10 Chronic hepatic failure without coma Office Visit 02/14/2015 Cesilia Vale G40.219 Local-rel 11:45a [facility] symptc epi w [place] cmplx part seiz, ntrct, w/o stat epi F79 Unspecified intellectual disabilities Office Visit 11/08/2014 Cesilia Vale 345.41 Local-Related 9:15a [facility] Epilepsy [place] W/Intractable Epilepsy 319 Unspecified Intellectual Disabilities 440.9 Atherosclerosis Generalized & Unspec Office Visit 09/27/2014 Cesilia Vale 345.41 Local-Related 1:45p [facility] Epilepsy [place] W/Intractable Epilepsy 319 Unspecified Intellectual Disabilities Office Visit 09/13/2014 Cesilia Vale 345.41 Local-Related 1:45p [facility] Epilepsy [place] W/Intractable Epilepsy 319 Unspecified Intellectual Disabilities Office Visit 01/25/2014 Cesilia Vale 345.41 Local-Related 2:45p [facility] Epilepsy [place] W/Intractable Epilepsy 319 Unspecified Intellectual Disabilities Office Visit 11/16/2013 Cesilia Vale 345.41 Local-Related 8:45a [facility] Epilepsy [place] W/Intractable Epilepsy 319 Unspecified Intellectual Disabilities 825.25 FX Other Bones Metatarsal Bone(S) Closed Office Visit 05/04/2013 Cesilia Vale 345.41 Local-Related 1:00p [facility] Epilepsy [place] W/Intractable Epilepsy 319 Unspecified Intellectual Disabilities Office Visit 03/02/2013 Cesilia Vale 345.41 Local-Related 8:30a [facility] Epilepsy [place] W/Intractable Epilepsy 319 Unspecified Intellectual Disabilities 780.2 Syncope & Collapse Office Visit 09/01/2012 [place] Vargas SKatherin 345.41 Local-Related 8:45a [facility] Richardson Epilepsy [facility] W/Intractable Epilepsy 319 Unspecified Intellectual Disabilities Office Visit 03/18/2011 10:30a [employer] Aakash Corona, 825.25 FX Other Bones of [place] [facility] M.D. Metatarsal Bone(S) Closed Office Visit 02/18/2011 10:45a [employer] Aakash Corona, 825.25 FX Other Bones of [facility] M.D. Metatarsal Bone(S) Closed Plan of Treatment Future Appointment(s):04/27/2019 1:00 pm - Leonides Jain NP at [facility]01/02/2019 1:00 pm - MILVIA Dennison at [facility] Primary [facility]10/20/2018 - Leonides Jain NPG40.219 Localization-related (focal) (partial) symptomatic epilepsyFollow up:SIX MONTHSRecommendations:Continue regimen as prescribed. Let us know if you experience as seizure activity.
== END 2018-10-25 21:09 | disposition home or self-care (01) ==
LOC: UCCORT 19:57
DX: B37.0 Candidal stomatitis (principal); I10 Essential (primary) hypertension
CPT/HCPCS: 99212; G0463

== ENCOUNTER 2019-01-23 13:11 | Emergency (ER) | payer MEDICARE, MEDICAID ==
--- OUTSIDE RECORDS SUMMARY | 2019-01-23 13:25 | XMS REPORT | Continuity of Care Document ---
:1945 External Reference #:[id number] Author Name MILVIA Dennison (transmitted by agent of provider Julia Khan) Address [address] [place] [address] Care Team Providers Name Role Phone Carine Navarro MD - Family Care Team Information Experimental Welder [phone] Medicine Reina Blanc RPA - Medical Care Team Information Experimental Welder [phone] Satish Vega MD - Vascular Care Team Information Experimental Welder [phone] Surgery Problems Active Problems Provider Date Localization-related epilepsy Vargas Richardson M.D. Onset: 01/25/2014 Degenerative joint disease involving MILVIA Dennison Onset: 06/07/2018 multiple joints Note: ankles, knees, hip, dorsal/lumbar spine Osteoporosis Reina Blanc PA Onset: 06/07/2018 Note: compression fxs [id number] Chronic low back pain Reina Blanc PA Onset: 06/07/2018 Essential hypertension Reina Blanc PA Onset: 06/07/2018 Glaucoma Reina Blanc PA Onset: 06/07/2018 Obstructive sleep apnea syndrome Reina Blanc PA Onset: 06/07/2018 Note: noncompliant with a-pap Allergic rhinitis Reina Blanc PA Onset: 06/07/2018 Non-alcoholic fatty liver Reina Blanc PA Onset: 06/07/2018 Constipation Reina Blanc, PA Onset: 06/07/2018 Cholelithiasis without obstruction Reina Blanc PA Onset: 06/07/2018 Asymptomatic carotid artery stenosis Reina Blanc PA Onset: 06/07/2018 Note: right Intellectual functioning disability Reina Blanc PA Onset: 06/07/2018 Note: nonspecific Sensorineural hearing loss, bilateral Reina Blanc PA Onset: 06/07/2018 Gastroesophageal reflux disease Reina Blanc PA Onset: 06/07/2018 Note: with tortuous esophagus Dilation of esophagus Reina Blanc PA Onset: 06/10/2018 Note: 09/2016, 10/2017 Retention of urine MILVIA Dennison Onset: 06/07/2018 Depressive disorder Reina Blanc PA Onset: 06/07/2018 Social History Type Date Description Comments Sex Unknown ETOH Use Denies alcohol use Tobacco Use Start: Unknown Patient has never smoked Recreational Drug Use Denies Drug Use Smoking Status Reviewed: 01/02/19 Patient has never smoked Allergies, Adverse Reactions, Alerts Active Allergies Reaction Severity Comments Date Penicillin 02/18/2011 Timolol Eye Drops 02/18/2011 Atenolol 11/08/2014 Keppra increased LFT levels increase LFT levels 10/07/2017 Medications Active Medications SIG Qnty Indications Ordering Date Provider Macrobid 1 cap by mouth 14caps R31.21 [place] 01/02/2019 100mg Capsules twice a day for 7 MD Joseph days Order New [place] 12/08/2018 medication...rosuv MD Joseph astatin 10mg one pill po daily Rosuvastatin Calcium 1 by mouth every 90tabs [place] 12/07/2018 day MD Joseph 10mg Tablets Oyster Shell take 1 tablet by 180tabs [place] 09/22/2018 Calcium/D mouth 2 times MD Joseph daily [id number] Tablets Tab-A-Bessie take 1 tablet by 90tabs [place] 09/01/2018 Tablets mouth daily MD Joseph Milk Of Magnesia 30 milliliters by 480ml [place] 08/11/2018 mouth every 3 days MD Joseph 400mg/5ML Suspension if no bm; may give every day if no results Phenytoin Sodium take one cap by 90caps Vargas Vale 07/18/2018 Extended mouth in am and 2 Edna Richardson 100mg Capsules caps in pm Linzess 1 cap by mouth on 30caps Sal 07/07/2018 145mcg Capsules Lucina Brunson Sat, Castellanos, MD Sun Venlafaxine HCL ER 1 cap by mouth 30caps Sal 07/07/2018 every day MD Joseph 150mg Caps ER 24HR Topiramate 3 po bid 180tabs Vargas Vale 11/26/2015 100mg Edna Richardson Tablets Gabapentin 2 tabs by mouth 180caps Vargas SKatherin 300mg three times a day Edna Richardson Capsules Fleet Enema may use enema 2units Sal every 5 days if no MD Joseph 7-19GM/118ML Enema bm results from mom Azopt three times a day Unknown 1% Suspension Calcitonin ([place]) 1 spray to 3.700ml alternating MD Joseph 200Unit/Act Solution nostrils once daily Combigan 1 drop in both Unknown 0.2-0.5% eyes bid Solution Tylenol Extra 1 tab every 4 60tabs Sal Strength hours as needed MD Joseph 500mg Tablets for fever > 100.5 and/or complaint of acute pain Mylanta 10 milliliters as Unknown needed [id number]/5ML Suspension Tussin DM 10 ml po every [...] day Omeprazole 1 by mouth every 30caps Sal 20mg day MD Joseph Capsules DR Nystatin apply thin layer 30gm Sal [id number]/GM to rash in MD Joseph Ointment abdominal folds four times a day as needed Tizanidine HCL 1 by mouth daily 90tabs Sal 4mg and 2 tabs at 2pm MD Joseph Tablets Miralax 17 gm every day 510gm [place] 3350NF Powder mixed w/ 8 oz MD Joseph water/juice daily. Naproxen 1 tab by mouth 90tabs [place] 500mg Tablets daily MD Joseph Abrevjonelle apply thin film to 2gm [place] 10% Cream cold sore 5 times MD Joseph daily as needed Acidophilus 1 by mouth every 90caps [place] Capsules day MD Joseph Vitamin D High 1 cap (or tab) by 90caps [place] Potency mouth every day MD Joseph 1000Unit Capsules Lumigan 1 gtt both eyes at Unknown 0.03% Solution hs Claritin 1 tablet po daily 90caps [place] 10mg Capsules MD Joseph Colace 3 caps by mouth 180caps [place] 100mg Capsules every day with MD Joseph fiber cereal (hold for loose stools) History Medications Ortder discontinue Zofran Sal Ruiz, 09/23/2018 - 10/19/2018 Nitrofurantoin 1 by mouth twice a 20caps Sal Ruiz 07/07/2018 - Monohydrate/Macrocryst day 07/12/2018 als 100mg Capsules Immunizations Description No Information Available Vital Signs Date Vital Result Comment 01/02/2019 1:27pm Height 58.5 inches 4'10.50" Weight 152.25 lb Heart Rate 72 /min BP Systolic Sitting 132 mmHg BP Diastolic Sitting 72 mmHg O2 % BldC Oximetry 97 % BMI (Body Mass Index) 31.3 kg/m2 10/20/2018 1:02pm Height 58.5 inches 4'10.50" Weight 160.00 lb Heart Rate 67 /min BP Systolic Sitting 128 mmHg BP Diastolic Sitting 68 mmHg Respiratory Rate 18 /min O2 % BldC Oximetry 97 % BMI (Body Mass Index) 32.9 kg/m2 Results Test Date Facility Test Result H/L Range Note Laboratory test 10/13/2018 [facility] Phenytoin 21.2 g/mL High 10-[address] ([employer]) [place] [address] [phone] Topomax (Topiramate) 5.7 g/mL 2 CBC Auto 10/13/2018 [facility] White Blood 4.8 10^3/uL Normal 3.5-10.[address] [place] [address] [phone] Red Blood Count 4.04 10^6/uL Normal 3.70-4.87 [...] Cells % 0.2 Comp Metabolic Panel 10/13/2018 [facility] Sodium 132 mmol/L Low 135-[address] [place] [address] [phone] Potassium 4.4 mmol/L Normal 3.5-5.0 Chloride 99 [...] Egfr 95.1 >60 3 Laboratory test 08/16/2018 [facility] Phenytoin 22.0 High 10- [address] (Dilantin) g/[place] [address] [phone] Phenytoin Free 07/15/2018 [facility] Free Phenytoin 1.7 g/mL 1.0 - 2.0 & Total [address] [place] [address] [phone] Total Phenytoin 5.6 g/mL Abnormal 4 Laboratory test 07/15/2018 [facility] Topomax 5.0 g/mL [address] (Topiramate) [place] [address] [phone] CBC Auto Diff 07/15/2018 [facility] White Blood Count 5.1 Normal 3.5- [address] 10^3/uL 10.8 [place] [address] [phone] Red Blood Count 4.05 10^6/uL Normal 3.70-4.87 [...] Blood Cells % 0.1 Comp Metabolic 07/15/2018 [facility] Sodium 138 mmol/L Normal 135-[address] [place] [address] [phone] Potassium 4.2 mmol/L Normal 3.5-5.0 Chloride 106 [...] Non- 73.9 >60 Egfr 89.4 >60 6 1 Please obtain trough level before am dose of Phenytoin and Topiramate. 2 REFERENCE VALUE Reference values depend on clinical use: Anticonvulsant: 5.0-20.0 mcg/mL Psychiatric: 2.0-8.0 mcg/mL ADDITIONAL INFORMATION This test was developed and its performance characteristics determined by [facility] in a manner consistent with CLIA requirements. This test has not been cleared or approved by the U.S. Food and Drug Administration. Test Performed by: [facility] [employer] - [facility] [address] [place] [address] 3 Because ethnic data is not always [...] VALUE 10.0 - 20.0 Test Performed by: [facility] - [address] [address] 5 REFERENCE VALUE Reference values depend on clinical use: Anticonvulsant: 5.0-20.0 mcg/mL Psychiatric: 2.0-8.0 mcg/mL ADDITIONAL INFORMATION This test was developed and its performance characteristics determined by [facility] in a manner consistent with CLIA requirements. This test has not been cleared or approved by the U.S. Food and Drug Administration. Test Performed by: [facility] - [facility] [address] [place] [address] 6 Because ethnic data is not always [...] 15-29 5 Kidney failure <15 (or dialysis) Procedures Date Code Description Status 09/05/2018 976040348 Diabetic Retinal Eye Exam Completed 07/04/2018 [id number] Mammogram Completed 06/23/2018 [id number] Diabetic Retinal Eye Exam Completed 06/30/2017 [id number] Mammogram Completed 06/18/2016 [id number] Mammogram Completed 06/18/2015 [id number] Mammogram Completed 10/25/2014 [id number] Colonoscopy Completed 11/29/2013 [id number] Bone Mineral Density Test Completed 07/07/2005 252515551 Bone Mineral Density Test Completed 06/13/2003 [id number] Flexible Sigmoidoscopy Completed Medical Devices Description No Information Available Encounters Type Date Location Provider Dx Diagnosis Office Visit 10/20/2018 [place] Leonides Jain NP G40.219 Local-rel symptc 1:00p 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, ntrct, 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 epi Office Visit 07/07/2018 [facility] Reina G40.219 Local-rel symptc 1:00p MILVIA Blanc epi w cmplx part seiz, ntrct, w/o stat epi R82.90 Unspecified abnormal findings in urine K59.00 Constipation, unspecified Assessments Date Code Description Provider 01/02/2019 R31.21 Asymptomatic microscopic hematuria MILVIA Dennison 01/02/2019 I65.29 Occlusion and stenosis of unspecified carotid MILVIA Dennison artery 10/20/2018 G40.219 Localization-related (focal) (partial) Leonides Jain NP symptomatic epilepsy 07/07/2018 G40.219 Localization-related (focal) (partial) MILVIA Dennison symptomatic epilepsy 07/07/2018 R82.90 Unspecified abnormal findings in urine MILVIA Dennison 07/07/2018 K59.00 Constipation, unspecified MILVIA Dennison Plan of Treatment Future Appointment(s):04/04/2019 10:00 am - MILVIA Dennison at [facility]04/27/2019 1:00 pm - Leonides Jain NP at [facility]01/02/2019 - Reina Blanc, PAR31.21 Asymptomatic microscopic hematuriaNew Medication:Macrobid 100 mg - 1 cap by mouth twice a day for 7 daysNew Labs:Ua Routine, Ordered: 01/02/19Urine Culture And Sensitivities, Ordered: 01/02/19Comments:Hx of microscopic hematuria, not present todayPyuria and nitrites rptnzX14.29 Occlusion and stenosis of unspecified carotid arteryComments:Rosuvastatin restarted 11/2018Hx of elevated LFT in past (likely from [facility] only) Functional Status Functional Condition Comment Date Status Manual wheelchair is used to ambulate Active Rolling walker is used to ambulate Active Mental Status Description No Information Available Referrals Description No Information Available
[2019-01-23 14:01] VITALS: BP 132/74
--- NOTE | 2019-01-23 14:21 | UC ---
UC General HPI - HPI Summary HPI Summary: 73-year-old woman who lives in a intermediate was in her wheelchair and she slipped out of it today. Patient has a history of seizures so she spends most of her time in the wheelchair. She does stand with help and with a walker. She has no complaint of any worse pain or injury from the fall today. - History of Current Complaint Chief Complaint: UCGeneralIllness Stated Complaint: SP FALL Time Seen by Provider: 01/23/19 14:02 Hx Last Menstrual Period: n/a Pain Intensity: 0 - Allergy/Home Medications Allergies/Adverse Reactions: Allergies Allergy/AdvReac Type Severity Reaction Status Date / Time acetaminophen Allergy "Can't Verified 01/23/19 13:50 have it because of her liver" levetiracetam [From Keppra] Allergy Unknown Verified 01/23/19 13:50 Reaction Details Penicillins Allergy Unknown Verified 01/23/19 13:50 Reaction Details timolol Allergy Rash Verified 01/23/19 13:50 Home Medications: Home Medications Rosuvastatin Calcium [Crestor] 10 mg PO DAILY 01/23/19 [History Confirmed ] PMH/Surg Hx/FS Hx/Imm Hx Previously Healthy: Yes Endocrine History: Dyslipidemia GI/ History: Gastroesophageal Reflux Neurological History: Seizures - Surgical History Surgical History: Yes Surgery Procedure, Year, and Place: Hysterectomy, Left Oopherectomy, - Family History Known Family History: Positive: None Negative: Cardiac Disease, Hypertension - Social History Alcohol Use: None Substance Use Type: None Smoking Status (MU): Never Smoked Tobacco Have You Smoked in the Last Year: No - Immunization History Most Recent Influenza Vaccination: 12/2014 Most Recent Tetanus Shot: 09/02/10 Most Recent Pneumonia Vaccination: 12/29/11 Vaccination Up to Date: Yes Review of Systems All Other Systems Reviewed And Are Negative: Yes Constitutional: Positive: Other - see hpi Skin: Positive: Negative Eyes: Positive: Negative ENT: Positive: Negative Respiratory: Positive: Negative Cardiovascular: Positive: Negative Gastrointestinal: Positive: Negative Motor: Positive: Other - see hpi Neurovascular: Positive: Negative Musculoskeletal: Positive: Other: - see hpi Neurological: Positive: Other - see hpi Psychological: Positive: Negative Is Patient Immunocompromised?: No Physical Exam Triage Information Reviewed: Yes Appearance: Well-Appearing, No Pain Distress, Well-Nourished Vital Signs: Initial Vital Signs Temp 97.9 F 01/23/19 13:50 Pulse 65 01/23/19 13:50 Resp 16 01/23/19 13:50 BP 132/74 01/23/19 13:50 Pulse Ox 100 01/23/19 13:50 Vital Signs Reviewed: Yes Eye Exam: Normal Eyes: Positive: Conjunctiva Clear Neck: Positive: Supple, Nontender Respiratory: Positive: Lungs clear, Normal breath sounds, No respiratory distress Cardiovascular: Positive: RRR Musculoskeletal: Positive: Other: - With assistance and using a walker patient was able to stand for examination. She does have some tenderness in her mid low back which she and her caregiver report is chronic. Bones and greater trochanters are nontender to palpation. Patient's able to move her legs and denies any tenderness to palpation on her legs. Neurological: Positive: Alert Psychological: Positive: Age Appropriate Behavior Skin Exam: Normal Course/Dx - Course Course Of Treatment: No acute injury found on examination today. Plan will be reevaluation if patient has any signs of injury or any questions or concerns. - Diagnoses Provider Diagnosis: Fall Discharge ED - Sign-Out/Discharge Documenting (check all that apply): Patient Departure All imaging exams completed and their final reports reviewed: No Studies - Discharge Plan Condition: Stable Disposition: HOME Patient Education Materials: Fall Prevention for Older Adults (ED) Referrals: Reina Blanc PA [Primary Care Provider] - Additional Instructions: FOLLOW UP WITH YOUR DOCTOR IF NOT COMPLETELY IMPROVED. GET REEVALUATED IF NOT IMPROVING OR WORSE OR ANY QUESTIONS OR CONCERNS. - Billing Disposition and Condition Condition: STABLE Disposition: Home
== END 2019-01-23 14:28 | disposition home or self-care (01) ==
LOC: UCCORT 13:11
DX: Z04.3 Encounter for examination and observation following other accident (principal); W05.0XXA Fall from non-moving wheelchair, initial encounter; Y92.199 Unspecified place in other specified residential institution as the place of occurrence of the external cause; E78.5 Hyperlipidemia, unspecified; Z88.6 Allergy status to analgesic agent; Z88.0 Allergy status to penicillin; Z88.8 Allergy status to other drugs, medicaments and biological substances
CPT/HCPCS: 99211; G0463

== ENCOUNTER 2019-04-19 15:19 | Emergency (ER) | payer MEDICARE, MEDICAID ==
[2019-04-19 15:36] VITALS: BP 133/69
--- NOTE | 2019-04-19 15:38 | UC ---
UC General HPI - HPI Summary HPI Summary: Patient is a 74yo female presenting with Xiao albert, for "white coating on tongue" that was noticed this morning. Martine states the last time this happened, she was diagnosed with thrush. Patient denies pain. Denies fever and chills. Denies other symptoms. Denies recent antibiotic use. Unsure of last time this happened. - History of Current Complaint Stated Complaint: ORAL COMPLAINT Hx Obtained From: Patient, Family/Client Advocate - aide Hx Last Menstrual Period: n/a Pain Intensity: 0 - Allergy/Home Medications Allergies/Adverse Reactions: Allergies Allergy/AdvReac Type Severity Reaction Status Date / Time acetaminophen Allergy "Can't Verified 04/19/19 15:36 have it because of her liver" levetiracetam [From [facility]] Allergy Unknown Verified 04/19/19 15:36 Reaction Details Penicillins Allergy Unknown Verified 04/19/19 15:36 Reaction Details timolol Allergy Rash Verified 04/19/19 15:36 Home Medications: Home Medications Calcium Carbonate/Vitamin D3 [Oyster Shell 500Mg-Vit D3 5Mcg] 1 tab PO BID 04/19 [History Confirmed 04/19/19] Fluticasone NASAL SPRAY 50MCG* [Flonase NASAL SPRAY 50MCG*] 2 spray BOTH NARES DAILY 04/19/19 [History Confirmed 04/19/19] Netarsudil Mesylate [Rhopressa] 2.5 ml OP DAILY 04/19/19 [History Confirmed 08/01] PMH/Surg Hx/FS Hx/Imm Hx - Surgical History Surgical History: Yes Surgery Procedure, Year, and Place: Hysterectomy, Left Oopherectomy, - Family History Known Family History: Positive: None Negative: Cardiac Disease, Hypertension - Social History Alcohol Use: None Substance Use Type: None Smoking Status (MU): Never Smoked Tobacco Have You Smoked in the Last Year: No - Immunization History Most Recent Influenza Vaccination: 12/2014 Most Recent Tetanus Shot: 09/02/10 Most Recent Pneumonia Vaccination: 12/29/11 Vaccination Up to Date: Yes Review of Systems All Other Systems Reviewed And Are Negative: Yes Constitutional: Positive: Negative. Negative: Fever, Chills, Fatigue ENT: Positive: Other - "white coating on tongue". Negative: Sore Throat, Sinus Congestion Respiratory: Positive: Negative Cardiovascular: Positive: Negative Gastrointestinal: Positive: Negative Musculoskeletal: Positive: Negative Neurological: Positive: Negative Physical Exam - Summary Physical Exam Summary: Vital Signs Reviewed: Yes A+Ox3, no distress, well-appearing Eyes: Conjunctiva Clear ENT: Hearing grossly normal, TM x 2 clear, +white plaques noted on tongue and buccal mucosa, moist, uvula midline, no exudate, no pharyngeal erythema or plaques Neck: Positive: Supple Respiratory: Positive: No respiratory distress, No accessory muscle use + CTA throughout no w/r Cardiovascular: RRR nl s1, s2 no m/r Musculoskeletal Exam: SHARPE x 4 without difficulty Neurological: Positive: Alert Psychological: Positive: age appropriate behavior Skin: Positive: no rash, no ecchymosis Vital Signs: Initial Vital Signs Temp 98.0 F 04/19/19 15:31 Pulse 74 04/19/19 15:31 Resp 17 04/19/19 15:31 BP 133/69 04/19/19 15:31 Pulse Ox 98 04/19/19 15:31 Course/Dx - Course Course Of Treatment: Discussed oral thrush with patient and head start director. Educated on nystatin swish and swallow and gave instructions on how to use it properly. Instructed to follow up with pcp if symptoms do not resolve after treatment. Patient and head start director voiced understanding and agreed with treatment plan. - Diagnoses Provider Diagnosis: Oral candidiasis Discharge ED - Sign-Out/Discharge Documenting (check all that apply): Patient Departure All imaging exams completed and their final reports reviewed: No Studies - Discharge Plan Condition: Stable Disposition: HOME Prescriptions: Nystatin SUSPENSION* 500,000 units PO QID 7 Days #140 ml Patient Education Materials: Oral Candidiasis (ED) Referrals: Reina Blanc PA [Primary Care Provider] - If Needed Additional Instructions: Take the nystatin swish and swallow as prescribed. Follow up with your primary care provider if symptoms do not resolve within 7 days. - Billing Disposition and Condition Condition: STABLE Disposition: Home - Attestation Statements Provider Attestation: I was available for consult. This patient was seen by the [facility]. The patient was not presented to, seen by, or examined by me. -Tristan
== END 2019-04-19 16:07 | disposition home or self-care (01) ==
LOC: UCCORT 15:19
DX: B37.0 Candidal stomatitis (principal); Z88.0 Allergy status to penicillin; Z88.8 Allergy status to other drugs, medicaments and biological substances
CPT/HCPCS: 99212; G0463